=== PATIENT | female | born 1955 | race Caucasian/White ===

== ENCOUNTER 2020-11-07 08:53 | Outpatient (CLI) | payer OTHER, SELFPAY ==
--- NOTE | ~2020-11-07 | XR_ITS ---
EXAMINATION: XR shoulder RT min 2V DATE: 11/07/2020 09:22 INDICATION: Right shoulder pain. TECHNIQUE: 4 views of right shoulder were obtained. COMPARISON: None. FINDINGS: Bone alignment is normal. No fracture. There is mild osteoarthritis of glenohumeral joint a nd acromioclavicular joint. IMPRESSION: 1. Mild polyarticular osteoarthritis. Reviewed, dictated and finalized at location B. STANT CHIEF ENGINEER
== END 2020-11-07 08:54 | disposition home or self-care (01) ==
LOC: ANHIMG 08:58
PROVIDERS: PCP Physician Assistant; Visit Provider Physician Assistant
DX: M25.511 Pain in right shoulder (principal); M19.011 Primary osteoarthritis, right shoulder
CPT/HCPCS: 73030

== ENCOUNTER 2020-11-11 09:30 | Outpatient (CLI) | payer OTHER, SELFPAY ==
--- NOTE | ~2020-11-11 | MR_ITS ---
EXAMINATION: MR shoulder RT wo con DATE: 11/11/2020 10:31 INDICATION: Acute onset right shoulder pain with limited range of motion TECHNIQUE: Magnetic resonance imaging (MRI) of the right shoulder was performed without intravenous c ontrast. Sequences included axial PD-weighted FS FSE, coronal oblique PD-weighted FS FSE, coronal obl ique T2-weighted FS FSE, sagittal PD-weighted FS FSE, and sagittal T1-weighted SE. COMPARISON: Right shoulder radiographs dated 11/07/2020 FINDINGS: Coracoacromial arch: The acromion undersurface is curved in morphology (type II). Small anterior subacromial spur at the a cromial insertion of the otherwise normal coracoacromial ligament. Mild acromioclavicular osteoarthri tis with subarticular edema at the lateral head of the clavicle. Rotator cuff: Moderate tendinopathy of the conjoined portion of the supraspinatus and infraspinatus tendons with li patti shallow bursal sided fraying but without a discrete tear defect. Mild tendinopathy of the more a nterior supraspinatus and infraspinatus tendons. The teres minor and subscapularis tendons are normal . Normal rotator cuff muscle bulk and signal. Biceps tendon, glenoid labrum and glenohumeral cartilage: Long head of the biceps tendon is normal. There is a tear of the 12:00-10:30 position of the posterio r superior glenoid labrum. Small region of partial-thickness cartilage loss without degenerative subc hondral changes at the posterior superior medial aspect of the humeral head. Articular cartilage is o therwise normal. Fluid: Small glenohumeral joint effusion with mild synovitis at the axillary recess and with proportional ex tension of a small amount of fluid into the long head biceps tendon sheath and deep subscapular reces s. No loose osteochondral bodies. Small amount of fluid in the subacromial/subdeltoid bursa as well a s the subcoracoid bursa consistent with mild bursitis. Bones: No fracture or pathologic marrow replacing process. Mild cystic change at the posterior facet of the greater tuberosity. IMPRESSION: 1. Moderate tendinopathy and shallow bursal sided fraying of the conjoined portion of the supraspinat us and infraspinatus tendons. 2. Tear of the posterior superior glenoid labrum. 3. Mild glenohumeral and acromioclavicular osteoarthritis. 4. Mild subacromial/subdeltoid and subcoracoid bursitis. Reviewed, dictated and finalized at location B. H PRINTER HELPER IMPRESSION: 1. Moderate tendinopathy and shallow bursal sided fraying of the conjoined port ion of the supraspinatus and infraspinatus tendons. 2. Tear of the posterior superior glenoid labrum. 3. Mild glenohumeral and acromioclavicular osteoarthritis. 4. Mild subacromial/subdeltoid and subcoracoid bursitis.
== END 2020-11-11 09:31 | disposition home or self-care (01) ==
LOC: ANHIMG 09:33
PROVIDERS: PCP Physician Assistant
DX: M19.011 Primary osteoarthritis, right shoulder (principal); M75.51 Bursitis of right shoulder; S43.431A Superior glenoid labrum lesion of right shoulder, initial encounter; X58.XXXA Exposure to other specified factors, initial encounter
CPT/HCPCS: 73221

== ENCOUNTER 2021-10-01 11:41 | Emergency (ER) | payer OTHER, SELFPAY ==
--- NOTE | ~2021-10-01 | XR_ITS ---
EXAMINATION: XR foot RT min 3V DATE: 10/01/2021 13:05 INDICATION: Right foot pain and inability to bear weight post injury TECHNIQUE: Dorsoplantar, two oblique and lateral views of the right foot were obtained. COMPARISON: None. FINDINGS: Alignment is normal. No fracture. Minimal to mild osteoarthritis of the first metatarsophalangeal, ca lcaneocuboid and a few tarsometatarsal and interphalangeal joints. Soft tissues are unremarkable. IMPRESSION: 1. Minimal to mild osteoarthritis in the right foot. No evident acute osseous abnormality. Reviewed, dictated and finalized at location A. STMENT PROFESSIONAL IMPRESSION: 1. Minimal to mild osteoarthritis in the right foot. No evident acute osseous a bnormality.
[2021-10-01 12:45] VITALS: BP 153/103; PULSE 90; RESP 18; TEMP 36.9; O2SAT 100
[2021-10-01] MEDS: KETOROLAC 30 MG/ML VIAL (*BKC) IM (15:13)
--- NOTE | 2021-10-01 15:47 | ED.GENADULT ---
HPI - General Adult General Chief complaint: Extremity Injury, Lower Stated complaint: R foot injury Time Seen by Provider: 10/01/21 13:52 Source: patient Mode of arrival: wheelchair Limitations: no limitations History of Present Illness HPI narrative: Patient is a 66-year-old female with chief complaint of pain to her right foot and began after a car rolled over her foot while working. Patient reports pain to the entire right foot. She reports she is not able to weight-bear. She denies any other injuries. Patient denies any allergies to any pain medication for renal dysfunction. Related Data Allergies Allergy/AdvReac Type Severity Reaction Status Date / Time Sulfa (Sulfonamide AdvReac Rash Verified 10/01/21 12:48 Antibiotics) Review of Systems Review of Systems: CONSTITUTIONAL: Denies fever, chills, or sweats. EYES: Denies visual changes, redness, or discharge. ENT: Denies rhinorrhea, congestion, sore throat, or otalgia. CARDIOVASCULAR: Denies chest pain, palpitations, or edema. RESPIRATORY: Denies cough or dyspnea. GASTROINTESTINAL: Denies abdominal pain, nausea, vomiting, or diarrhea. GENITOURINARY: Denies dysuria or hematuria. SKIN: Denies rash or itching. MUSCULOSKELETAL: Reports right foot pain denies back pain, joint pain, or myalgia. NEUROLOGIC: Denies headache, numbness, dizziness, or weakness. PSYCHIATRIC: Denies anxiety or depression. Exam Narrative: GENERAL: Well-appearing, well-nourished, and in no acute distress. HEAD: Normocephalic, atraumatic. EYES: PERRLA and EOMI. CHEST: Clear to auscultation. No respiratory distress. No wheezes rales or rhonchi HEART: Regular rate and rhythm. No murmur heard. Normal peripheral pulses. ABDOMEN: Soft, nontender, nondistended, normal active bowel sounds. EXTREMITIES: Swelling to the dorsal aspect of patient's right foot. Patient reports pain with palpation of any of the foot. There are no open wounds. Patient reports decreasing plantar and dorsiflexion due to discomfort. Patient refused to bear weight on the foot. SKIN: Warm, dry, no rash. NEURO: No focal deficits. Alert and oriented x3. PSYCH: Normal mood and affect. Course Vital Signs Vital signs: Vital Signs Temperature 98.5 F 10/01/21 12:45 Pulse Rate 90 10/01/21 12:45 Respiratory Rate 18 10/01/21 12:45 Blood Pressure 153/103 H 10/01/21 12:45 Pulse Oximetry 100 10/01/21 12:45 Temperature 98.5 F 10/01/21 12:45 Pulse Rate 90 10/01/21 12:45 Respiratory Rate 18 10/01/21 12:45 Blood Pressure 153/103 H 10/01/21 12:45 Pulse Oximetry 100 10/01/21 12:45 Medical Decision Making MDM Narrative Medical decision making narrative: There are no fractures noted on patient's x-ray. Discussed with patient that she may have injured something in the ligaments. Discussed patient MRIs evaluating the ligament injury. We do not perform those in emergency department. Patient be placed in postop shoe, given crutches, naproxen and cyclobenzaprine for discomfort. Patient instructed to rest, ice, elevate and follow-up with teacher specialist further evaluation of her symptoms. Patient given a work note. Patient agreed to return to emergency department if she has any emergent symptoms. Differential Diagnosis Differential Diagnosis: Fracture, sprain, strain, contusion Vital Signs Vital Signs: Vital Signs Temperature 98.5 F 10/01/21 12:45 Pulse Rate 90 10/01/21 12:45 Respiratory Rate 18 10/01/21 12:45 Blood Pressure 153/103 H 10/01/21 12:45 Pulse Oximetry 100 10/01/21 12:45 Temperature 98.5 F 10/01/21 12:45 Pulse Rate 90 10/01/21 12:45 Respiratory Rate 18 10/01/21 12:45 Blood Pressure 153/103 H 10/01/21 12:45 Pulse Oximetry 100 10/01/21 12:45 Imaging Data Radiologist's impression: ITS Impressions Foot X-Ray 10/01/21 13:11 IMPRESSION: 1. Minimal to mild osteoarthritis in the right foot. No evident acute osseous abnormality. Disc
[2021-10-01 16:33] VITALS: BP 161/91; PULSE 92; RESP 19; O2SAT 96
== END 2021-10-01 16:34 | disposition home or self-care (01) ==
PROVIDERS: Emergency Provider Emergency Medicine
DX: S93.601A Unspecified sprain of right foot, initial encounter (principal); M19.071 Primary osteoarthritis, right ankle and foot; W22.8XXA Striking against or struck by other objects, initial encounter
CPT/HCPCS: 73630; 96372; 99283; J1885

== ENCOUNTER 2021-12-24 14:40 | Outpatient (CLI) | payer OTHER, SELFPAY ==
--- NOTE | ~2021-12-24 | MM_ITS ---
EXAMINATION: MM screening [place] BI w adrian HISTORY: Screening TECHNIQUE: Craniocaudal and mediolateral oblique 3-D tomosynthesis images were obtained and synthetic 2-D images were generated. CAD analysis was submitted and interpreted. COMPARISON: No prior mammogram is available for comparison at this institution. BREAST PARENCHYMAL COMPOSITION: The breasts are heterogeneously dense, which may obscure small masses . FINDINGS: There is no evidence of suspicious mass, calcification, or architectural distortion to sugg est malignancy in either breast. There has been no suspicious interval change. IMPRESSION: 1. No mammographic evidence of malignancy. 2. Recommend routine screening mammography in one year. BI-RADS Category 1: Negative Reviewed, dictated and finalized at location A. SIT BUS OPERATOR
== END 2021-12-24 14:41 | disposition home or self-care (01) ==
PROVIDERS: PCP Family Medicine Sports Medicine; Visit Provider Family Medicine Sports Medicine
DX: Z12.31 Encounter for screening mammogram for malignant neoplasm of breast (principal)
CPT/HCPCS: 77063; 77067

== ENCOUNTER 2023-05-28 07:08 | Outpatient (CLI) | payer MEDICARE, SELFPAY ==
[2023-05-28 07:48] LABS: Basophils Percent Auto 0.7 % (0.2-1.2); Eosinophils Absolute Auto 0.1 K/mm3 (0-0.3); Eosinophils Percent Auto 2.4 % (0-4.4); Hemoglobin 12.9 g/dL (12.0-15.0); Immature Granulocyte Absolute 0.02 K/mm3 (0.00-0.031); Immature Granulocyte Percent A 0.3 % (0-0.5); Lymphocytes Absolute Auto 1.69 K/mm3 (0.9-3.2); Lymphocytes Percent Auto 29.1 % (18.3-44.2); Mean Corpuscular HGB Conc 31.5 g/dl (32-36); Mean Corpuscular Hemoglobin 31.2 pg (26-34); Mean Platelet Volume 10.2 fl (7.4-10.4); Monocytes Absolute Auto 0.7 K/mm3 (0.1-0.6); Monocytes Percent Auto 11.4 % (2.6-8.5); Neutrophils Absolute Auto 3.3 K/mm3 (1.3-6.7); Neutrophils Percent Auto 56.1 % (45.5-73.1); Platelet Count Result 196 k/mm3 (150-375); Red Blood Count 4.14 M/mm3 (4.2-5.4); Red Cell Distribution Width 14.5 % (11.5-14.5); White Blood Count 5.8 K/mm3 (4.5-10.0)
[2023-05-28 07:54] LABS: Appearance Urine Clear (Clear); Bacteria Urine None Seen /hpf; Bilirubin Urine Negative (Negative); Blood Urine Negative (Negative); Color Urine Yellow (Yellow); Glucose Urine UA Negative (Negative); Ketones Urine Negative (Negative); Leukocyte Esterase Ur 3+ LEU/UL (Negative); Nitrate Urine Negative (Negative); Non Pathogenic Casts 0-2; Protein Urine Negative (Negative); RBC Urine 0-2 /hpf (0-2); Specific Grav Ur 1.012 (1.001-1.035); Squamous Epithelial Cell Urine Moderate /hpf (Few); Urobilinogen Urine 0.2 mg/dL (<2.0)
[2023-05-28 07:56] LABS: Add Urine Microscopic? YES
[2023-05-28 07:58] LABS: Alanine Aminotransferase 25 U/L (6-35); Albumin Level 4.5 g/dL (3.5-5.1); Alkaline Phosphatase 67 U/L (38-126); Anion Gap 6 mmol/L (8-16); Aspartate Amino Transferase 31 U/L (14-36); Bilirubin,Total 0.4 mg/dL (0.2-1.3); Blood Urea Nitrogen 12 mg/dL (7-17); Calcium 8.5 mg/dL (8.4-10.2); Carbon Dioxide 28 mmol/L (22-30); Chloride 103 mmol/L (98-107); Cholesterol 227 mg/dL (0-200); Estimated Glomerular Filt Rate > 60; Glucose 87 mg/dL (65-110); HDL Direct 91 mg/dL; Potassium 4.3 mmol/L (3.4-5.0); Sodium 137 mmol/L (137-145); Triglycerides 56 mg/dL (<150)
[2023-05-28 08:09] LABS: LDL Cholesterol Direct 109 mg/dL
[2023-05-28 08:40] LABS: Free T4 Free Thyroxine 1.11 ng/mL (0.78-2.19)
[2023-05-28 09:12] LABS: Folic Acid > 20.0 ng/mL (2.76->20)
== END 2023-05-28 07:09 | disposition home or self-care (01) ==
PROVIDERS: PCP Family Medicine Sports Medicine; Visit Provider Family Medicine Sports Medicine
DX: E78.5 Hyperlipidemia, unspecified (principal); J44.9 Chronic obstructive pulmonary disease, unspecified; J45.909 Unspecified asthma, uncomplicated; K21.9 Gastro-esophageal reflux disease without esophagitis
CPT/HCPCS: 36415; 80053; 80061; 81001; 82607; 82746; 84439; 84443; 85025; 87086

== ENCOUNTER 2023-10-09 09:34 | Outpatient (CLI) | payer MEDICARE, SELFPAY ==
--- NOTE | ~2023-10-09 | MM_ITS ---
EXAMINATION: MM screening [place] BI w adrian HISTORY: Screening mammogram TECHNIQUE: Craniocaudal and mediolateral oblique 3-D tomosynthesis images were obtained and synthetic 2-D images were generated. CAD analysis was submitted and interpreted. COMPARISON: 12/24/2021, 11/13/2017 bilateral screening mammogram examinations BREAST PARENCHYMAL COMPOSITION: The breasts are heterogeneously dense, which may obscure small masses . FINDINGS: There is no evidence of suspicious mass, calcification, or architectural distortion to sugg est malignancy in either breast. There has been no suspicious interval change. IMPRESSION: 1. No mammographic evidence of malignancy. 2. Recommend routine screening mammography in one year. BI-RADS Category 1: Negative Reviewed, dictated and finalized at location A. E MERCHANT
== END 2023-10-09 09:35 | disposition home or self-care (01) ==
PROVIDERS: PCP Family Medicine Sports Medicine; Visit Provider Nurse Practitioner
DX: Z12.31 Encounter for screening mammogram for malignant neoplasm of breast (principal)
CPT/HCPCS: 77063; 77067

== ENCOUNTER 2023-11-25 07:44 | Outpatient (CLI) | payer MEDICARE, SELFPAY ==
[2023-11-25 08:26] LABS: Alanine Aminotransferase 19 U/L (6-35); Albumin Level 4.4 g/dL (3.5-5.1); Alkaline Phosphatase 77 U/L (38-126); Anion Gap 6 mmol/L (8-16); Aspartate Amino Transferase 29 U/L (14-36); Bilirubin,Total 0.5 mg/dL (0.2-1.3); Blood Urea Nitrogen 14 mg/dL (7-17); Calcium 9.5 mg/dL (8.4-10.2); Carbon Dioxide 28 mmol/L (22-30); Chloride 103 mmol/L (98-107); Cholesterol 227 mg/dL (0-200); Estimated Glomerular Filt Rate > 60; Glucose 98 mg/dL (65-110); HDL Direct 82 mg/dL; Potassium 4.9 mmol/L (3.4-5.0); Sodium 137 mmol/L (137-145); Triglycerides 78 mg/dL (<150)
[2023-11-25 08:28] LABS: Basophils Absolute Auto 0.1 K/mm3 (0.0-0.1); Basophils Percent Auto 0.9 % (0.2-1.2); Eosinophils Absolute Auto 0.2 K/mm3 (0-0.3); Eosinophils Percent Auto 2.3 % (0-4.4); Hematocrit 43.9 % (37.0-47.0); Hemoglobin 13.8 g/dL (12.0-15.0); Immature Granulocyte Absolute 0.01 K/mm3 (0.00-0.031); Immature Granulocyte Percent A 0.2 % (0-0.5); Lymphocytes Absolute Auto 1.79 K/mm3 (0.9-3.2); Lymphocytes Percent Auto 27.3 % (18.3-44.2); Mean Corpuscular HGB Conc 31.4 g/dl (32-36); Mean Corpuscular Volume 98.7 fl (80-100); Mean Platelet Volume 10.4 fl (7.4-10.4); Monocytes Absolute Auto 0.8 K/mm3 (0.1-0.6); Monocytes Percent Auto 11.5 % (2.6-8.5); Neutrophils Absolute Auto 3.8 K/mm3 (1.3-6.7); Neutrophils Percent Auto 57.8 % (45.5-73.1); Platelet Count Result 241 k/mm3 (150-375); Red Blood Count 4.45 M/mm3 (4.2-5.4); Red Cell Distribution Width 13.6 % (11.5-14.5); White Blood Count 6.6 K/mm3 (4.5-10.0)
[2023-11-25 08:29] LABS: Appearance Urine Cloudy (Clear); Bacteria Urine 3+ /hpf; Bilirubin Urine Negative (Negative); Blood Urine Negative (Negative); Color Urine Yellow (Yellow); Glucose Urine UA Negative (Negative); Ketones Urine Negative (Negative); Leukocyte Esterase Ur 3+ LEU/UL (NEGATIVE); Nitrate Urine Negative (Negative); Non Pathogenic Casts 0-2; Protein Urine 1+ mg/dL (Negative); RBC Urine 0-2 /hpf (0-2); Specific Grav Ur 1.018 (1.001-1.035); Squamous Epithelial Cell Urine Many /hpf (Few); Urobilinogen Urine 0.2 mg/dL (<2.0); WBC Urine 21-50 /hpf (0-3); pH Urine 5.5 (5.0-9.0)
[2023-11-25 08:33] LABS: Add Urine Microscopic? YES
[2023-11-25 08:37] LABS: LDL Cholesterol Direct 114 mg/dL
[2023-11-25 08:55] LABS: Thyroid Stimulating Hormone 0.162 uIU/mL (0.465-4.680)
[2023-11-25 09:34] LABS: Folic Acid > 20.0 ng/mL (2.76->20); Vitamin B12 > 1000.0 pg/mL (239-931)
== END 2023-11-25 07:45 | disposition home or self-care (01) ==
LOC: ANHLAB 07:46
PROVIDERS: PCP Family Medicine; Visit Provider Nurse Practitioner
DX: E78.5 Hyperlipidemia, unspecified (principal); K21.9 Gastro-esophageal reflux disease without esophagitis; J44.9 Chronic obstructive pulmonary disease, unspecified
CPT/HCPCS: 36415; 80053; 80061; 81001; 82607; 82746; 84439; 84443; 85025

== ENCOUNTER 2024-06-08 09:08 | Outpatient (CLI) | payer MEDICARE, SELFPAY ==
[2024-06-08 09:58] LABS: Add Urine Microscopic? YES; Appearance Urine Cloudy (Clear); Bacteria Urine 2+ /hpf; Bilirubin Urine Negative (Negative); Blood Urine Negative (Negative); Color Urine Yellow (Yellow); Glucose Urine UA Negative (Negative); Ketones Urine Negative (Negative); Leukocyte Esterase Ur 3+ LEU/UL (Negative); Nitrate Urine Negative (Negative); Non Pathogenic Casts 0-2; Protein Urine Trace mg/dL (Negative); RBC Urine 0-2 /hpf (0-2); Specific Grav Ur 1.017 (1.001-1.035); Squamous Epithelial Cell Urine Many /hpf (Few); WBC Urine 51-100 /hpf (0-3); pH Urine 6.5 (5.0-9.0)
[2024-06-08 10:01] LABS: Alanine Aminotransferase 17 U/L (6-35); Albumin Level 4.5 g/dL (3.5-5.1); Alkaline Phosphatase 64 U/L (38-126); Anion Gap 6 mmol/L (4-12); Aspartate Amino Transferase 27 U/L (14-36); Bilirubin,Total 0.5 mg/dL (0.2-1.3); Blood Urea Nitrogen 15 mg/dL (7-17); Carbon Dioxide 30 mmol/L (22-30); Chloride 101 mmol/L (98-107); Cholesterol 207 mg/dL (0-200); Estimated Glomerular Filt Rate > 60; Glucose 94 mg/dL (65-110); HDL Direct 73 mg/dL; Potassium 4.3 mmol/L (3.4-5.0); Sodium 137 mmol/L (137-145); Triglycerides 92 mg/dL (<150)
[2024-06-08 10:06] LABS: Basophils Absolute Auto 0.1 K/mm3 (0.0-0.1); Basophils Percent Auto 1.1 % (0.2-1.2); Eosinophils Absolute Auto 0.2 K/mm3 (0-0.3); Eosinophils Percent Auto 3.7 % (0-4.4); Hematocrit 41.7 % (37.0-47.0); Hemoglobin 13.5 g/dL (12.0-15.0); Immature Granulocyte Absolute 0.01 K/mm3 (0.00-0.031); Immature Granulocyte Percent A 0.2 % (0-0.5); Lymphocytes Absolute Auto 2.11 K/mm3 (0.9-3.2); Lymphocytes Percent Auto 39.4 % (18.3-44.2); Mean Corpuscular HGB Conc 32.4 g/dl (32-36); Mean Corpuscular Hemoglobin 32.1 pg (26-34); Mean Platelet Volume 10.3 fl (7.4-10.4); Monocytes Absolute Auto 0.7 K/mm3 (0.1-0.6); Monocytes Percent Auto 13.1 % (2.6-8.5); Neutrophils Absolute Auto 2.3 K/mm3 (1.3-6.7); Neutrophils Percent Auto 42.5 % (45.5-73.1); Platelet Count Result 191 k/mm3 (150-375); Red Blood Count 4.21 M/mm3 (4.2-5.4); Red Cell Distribution Width 14.1 % (11.5-14.5); White Blood Count 5.4 K/mm3 (4.5-10.0)
[2024-06-08 10:12] LABS: LDL Cholesterol Direct 107 mg/dL
[2024-06-08 10:29] LABS: Vitamin D 25 Hydroxy 38.8 ng/mL
[2024-06-08 11:10] LABS: Folic Acid > 20.0 ng/mL (2.76->20)
== END 2024-06-08 09:09 | disposition home or self-care (01) ==
PROVIDERS: PCP Family Medicine; Visit Provider Nurse Practitioner
DX: E78.5 Hyperlipidemia, unspecified (principal); J44.9 Chronic obstructive pulmonary disease, unspecified; J45.909 Unspecified asthma, uncomplicated; E53.8 Deficiency of other specified B group vitamins; K21.9 Gastro-esophageal reflux disease without esophagitis; Z13.21 Encounter for screening for nutritional disorder; E55.9 Vitamin D deficiency, unspecified
CPT/HCPCS: 36415; 80053; 80061; 81001; 82306; 82607; 82746; 84443; 85025; 87086; 87088

== ENCOUNTER 2025-01-31 09:39 | Outpatient (CLI) | payer MEDICARE, SELFPAY ==
--- OUTSIDE RECORDS SUMMARY | 2025-01-31 10:32 | XMS_ITS | Clinical Summary ---
Author Organization [facility] [place] [address] [facility] Address [address] [place] [address] Care Team Providers Care Financial Planning Advisor Name Role Phone Yoanna Narvaez Primary Care Provider +1- [phone] Allergies Active Allergy Reactions Criticality Noted Date Comments Sulfa (Sulfonamide Antibiotics) Hives Medium 10/20 Medications Breo Ellipta 100-25 mcg/dose diskus inhaler INHALE 1 PUFF BY MOUTH ONCE DAILY RINSE AND SPIT AFTER EACH USE TO PREVENT THRUSH 0 Active simvastatin (ZOCOR) 20 mg tabletIndications:H yperlipidemia, unspecified hyperlipidemia type Take 1 tablet (20 mg total) by mouth daily 90 tablet [address] (PROTONIX) 20 mg EC tabletIndications:G astroesophageal reflux disease, unspecified whether esophagitis present Take 1 tablet (20 mg total) by mouth daily 90 tablet 1 Active Active Problems Problem Noted Date Diagnosed Date Hyperlipidemia 11/06/2020 Assessment & Plan (11/06/2020 9:29 AM BACKUP OPERATOR): Notes recent labs, will continue medication same. Will retrieve records from previous pcp. Gastroesophageal reflux disease 11/06/2020 Assessment & Plan (11/06/2020 9:30 AM BACKUP OPERATOR): Will continue with protonix. She was advised to call gi today - she reports she doesn't need a referral but will let us know if we can be of assistance. She was advised to discontinue breads/starchy foods, red meats, and pork as these are her offending agents. She was encouraged to try protein shakes or blending her foods until able to see gi. Encounter to establish care 11/06/2020 Acute pain of right shoulder 11/06/2020 Dysphagia 11/06/2020 Assessment & Plan (11/06/2020 9:30 AM BACKUP OPERATOR): Will continue with protonix. She was advised to call gi today - she reports she doesn't need a referral but will let us know if we can be of assistance. She was advised to discontinue breads/starchy foods, red meats, and pork as these are her offending agents. She was encouraged to try protein shakes or blending her foods until able to see gi. Immunizations Immunization Administration Dates Next Due Influenza, Unspecified 07/20/2020,07/20/2019 Surgical History Surgery Date Site/Laterality Comments HYSTERECTOMY CARPAL TUNNEL RELEASE SINUS SURGERY INGUINAL HERNIA REPAIR Left Medical History Medical History Date Comments GERD (gastroesophageal reflux disease) Arthritis Family History Medical History Relation Name Comments Diabetes Brother Heart disease Father Cancer Mother Heart disease Mother Relation Name Status Comments Brother Father Alive Mother Social History Tobacco Use Types Packs/Day Years Used Date Smoking Tobacco: Never Smokeless Tobacco: Never Alcohol Use Standard Drinks/Week Comments Yes 0 (1 standard drink = 0.6 oz pur e alcohol) PHQ-2 Answer Date Recorded PHQ-2 Total Score (If total score is 3 or more points, staff should administer the PHQ-9) 0 11/06/2020 Personal Safety Answer Date Recorded Getting School Help Needed Not on file 01/01 Comments Unknown Sex and Gender Information Value Date Recorded Sex Assigned at Not on file Legal Sex Female 2:37 AM BACKUP OPERATOR Gender Identity Not on file Sexual Orientation Not on file Obstetrics History Last Filed Vital Signs Vital Sign Reading Time Taken Comments Blood Pressure 120/70 11/06/2020 8:41 AM BACKUP OPERATOR Pulse 75 11/06/2020 8:41 AM BACKUP OPERATOR Temperature 36.6 C (97.8 F) 11/06/2020 8:41 AM BACKUP OPERATOR Respiratory Rate - - Oxygen Saturation 97% 11/06/2020 8:41 AM BACKUP OPERATOR Inhaled Oxygen Concentration - - Weight 58 kg (127 lb 12.8 oz) 11/06/2020 8:41 AM BACKUP OPERATOR Height 167.6 cm (5' 6 ) 11/06/2020 8:41 AM BACKUP OPERATOR Body Mass Index 20.63 11/06/2020 8:41 AM BACKUP OPERATOR Plan of Treatment Not on file Insurance [facility] CORE Care Teams Financial Planning Advisor Relationship Specialty Start Date End Date Yoanna Narvaez PA PCP - General Alley Worker 10/23/20
--- OUTSIDE RECORDS SUMMARY | 2025-01-31 10:32 | XMS_ITS | Clinical Summary ---
Author Organization [facility] Address [address] [place] [id number] Care Team Providers Care Automotive Parts Counter Assistant Name Role Phone Unavailable Primary Care Provider Unavailabl e Social History Tobacco Use Types Packs/Day Years Used Date Smoking Tobacco: Never Assessed Comments Unknown Sex and Gender Information Value Date Recorded Sex Assigned at Not on file Legal Sex Female 5:58 PM CDT Gender Identity Not on file Sexual Orientation Not on file Plan of Treatment Health Maintenance Due Date Last Done Comments Colorectal Cancer Screening Colonoscopy (10 Years) 1957 Hepatitis C 1975 DTaP, Tdap and Td Vaccines ( 1 - Tdap) 01/15/1976 Mammogram Screening 1997 Zoster Vaccines (1 of 2) 2007 Dexa Scan (General) 2022 Pneumococcal Vaccine: 50+ Ye ars (1 of 1 - PCV) 2022 COVID-19 Vaccine ( - 2023-2 5 season) 2024 RSV Immunization or 60+ Years (1 - 1-dose 75+ series) 01/15/2032 Meningococcal B Vaccine Aged Out No l onger eligible based on patient's age to complete this topic Meningococcal Vaccine Aged Out No laly clifton eligible based on patient's age to complete this topic RSV Immunizations Under 20 Months Aged Out No longer eligible based on patient's age to complete this topic
--- OUTSIDE RECORDS SUMMARY | 2025-01-31 10:32 | XMS_ITS | Referral Summary ---
Author Organization [facility] [place] [address] [facility] Address [address] [place] [address] Care Team Providers Care Pear Picker Name Role Phone Yoanna Narvaez Primary Care Provider +1- [phone] Allergies Active Allergy Reactions Criticality Noted Date [...] 11/06/2020 Assessment & Plan (11/06/2020 9:29 AM KNOWLEDGE ARCHITECT): Notes recent labs, will continue medication same. Will retrieve records from previous pcp. Gastroesophageal reflux disease 11/06/2020 Assessment & Plan (11/06/2020 9:30 AM KNOWLEDGE ARCHITECT): Will continue with protonix. She was advised [...] 11/06/2020 Assessment & Plan (11/06/2020 9:30 AM KNOWLEDGE ARCHITECT): Will continue with protonix. She was advised [...] Administration Dates Next Due Influenza, Unspecified 07/20/2020,07/20/2019 Social History Tobacco Use Types Packs/Day Years [...] on file Legal Sex Female 2:37 AM KNOWLEDGE ARCHITECT Gender Identity Not on file Sexual Orientation Not on file Last Filed Vital Signs Vital Sign Reading Time Taken Comments Blood Pressure 120/70 11/06/2020 8:41 AM KNOWLEDGE ARCHITECT Pulse 75 11/06/2020 8:41 AM KNOWLEDGE ARCHITECT Temperature 36.6 C (97.8 F) 11/06/2020 8:41 AM KNOWLEDGE ARCHITECT Respiratory Rate - - Oxygen Saturation 97% 11/06/2020 8:41 AM KNOWLEDGE ARCHITECT Inhaled Oxygen Concentration - - Weight 58 kg (127 lb 12.8 oz) 11/06/2020 8:41 AM KNOWLEDGE ARCHITECT Height 167.6 cm (5' 6 ) 11/06/2020 8:41 AM KNOWLEDGE ARCHITECT Body Mass Index 20.63 11/06/2020 8:41 AM KNOWLEDGE ARCHITECT Plan of Treatment Not on file Insurance [facility] CORE Care Teams Pear Picker Relationship Specialty Start Date End Date Yoanna Narvaez PA PCP - General Stumper Feller 10/23/20
--- OUTSIDE RECORDS SUMMARY | 2025-01-31 10:32 | XMS_ITS | Clinical Summary ---
Author Organization [facility] Address [address] [address] Phone Care Team Providers Care Stationary Engineer Supervisor Name Role Phone Yoanna Avitia Primary Care Provider [phone] [phone] Allergies Active Allergy Reactions Criticality Noted Date Comments Sulfa Antibiotics Hives Medium 11/06/2020 Medications pantoprazole (PROTONIX) 20 MG Tablet Delayed Response Take 20 mg by mouth. 11/06/2020 Active simvastatin (ZOCOR) 20 MG Tablet Take 20 mg by mouth. 10/22/2020 Active fluticasone-rob anterol (Breo Ellipta) 100-25 MCG/INH AEROSOL POWDER, BREATH ACTIVATED INHALE 1 PUFF BY MOUTH ONCE DAILY RINSE AND SPIT AFTER EACH USE TO PREVENT THRUSH 10/17/2020 Active Active Problems No known active problems Family History Medical History Relation Name Comments Diabetes Brother Hepatitis Brother Chronic Obstructive Pulmonary Disease Father Cancer Mother Heart Attack Mother Relation Name Status Comments Brother Father Mother Social History Tobacco Use Types Packs/Day Years Used Date Smoking Tobacco: Former Smokeless Tobacco: Never Tobacco Cessation:Counseling Given: No Alcohol Use Standard Drinks/Week Comments Yes 0 (1 standard drink = 0.6 oz pur e alcohol) 3x weekly; Beer Sexually Active Control Partners Comments Yes Comments No Sex and Gender Information Value Date Recorded Sex Assigned at Not on file Legal Sex Female 9:10 PM CDT Gender Identity Not on file Sexual Orientation Not on file Last Filed Vital Signs Vital Sign Reading Time Taken Comments Blood Pressure 122/78 12/25/2020 8:46 AM VEHICLE SALES PROFESSIONAL Pulse 78 12/25/2020 8:46 AM VEHICLE SALES PROFESSIONAL Temperature 36.1 C (97 F) 12/25/2020 8:46 AM VEHICLE SALES PROFESSIONAL Respiratory Rate 20 12/25/2020 8:46 AM VEHICLE SALES PROFESSIONAL Oxygen Saturation 97% 12/25/2020 8:46 AM VEHICLE SALES PROFESSIONAL Inhaled Oxygen Concentration - - Weight 58.1 kg (128 lb) 12/25/2020 8:46 AM VEHICLE SALES PROFESSIONAL Height 167.6 cm (5' 6 ) 12/25/2020 8:46 AM VEHICLE SALES PROFESSIONAL Body Mass Index 20.66 12/25/2020 8:46 AM VEHICLE SALES PROFESSIONAL Plan of Treatment Health Maintenance Due Date Last Done Comments Hepatitis C Virus (HCV) Screening 1955 TdaP Immunization 1955 Colonoscopy 2002 Colorectal Cancer Screening 2002 Cologuard 2007 Immunochemical Fecal Occult Blood 2007 Pneumococcal Immunization (5 0+ years) (1 of 1 - PCV) 2007 Zoster Immunization (1 of 2) 2007 Influenza Immunization (#1) 2024 SARS-COV-2 Immunization (2023- season) 2024 08/03/2021, 10/31/2020, 10/10/2020 Respiratory Syncytial Virus (RSV) Immunization (Adult) (1 - 1-dose 75+ series) 01/15/2032 Hepatitis B Immunization Aged Out No longer eligible based on patient's age to complete this topic Meningococcal Immunization (ACWY) Aged Out No longer eligible b ased on patient's age to complete this topic Rotavirus Immunization Aged Out No lo nger eligible based on patient's age to complete this topic Insurance Care Teams Stationary Engineer Supervisor Relationship Specialty Start Date End Date Yoanna Avitia PA [address] [place], [place] [address] PCP - General Physician Websphere Portal Architect 12/25/20
[2025-01-31 11:01] LABS: Hematocrit 42.6 % (37.0-47.0); Hemoglobin 13.5 g/dL (12.0-15.0); Mean Corpuscular HGB Conc 31.7 g/dl (32-36); Mean Corpuscular Volume 97.7 fl (80-100); Mean Platelet Volume 10.4 fl (7.4-10.4); Platelet Count Result 211 k/mm3 (150-375); Red Blood Count 4.36 M/mm3 (4.2-5.4); Red Cell Distribution Width 14.1 % (11.5-14.5); White Blood Count 5.8 K/mm3 (4.5-10.0)
[2025-01-31 11:11] LABS: Alanine Aminotransferase 22 U/L (6-35); Albumin Level 4.7 g/dL (3.5-5.1); Alkaline Phosphatase 76 U/L (38-126); Anion Gap 9 mmol/L (4-12); Aspartate Amino Transferase 31 U/L (14-36); Bilirubin,Total 0.4 mg/dL (0.2-1.3); Blood Urea Nitrogen 13 mg/dL (7-17); Calcium 9.4 mg/dL (8.4-10.2); Carbon Dioxide 29 mmol/L (22-30); Chloride 100 mmol/L (98-107); Cholesterol 239 mg/dL (0-200); Estimated Glomerular Filt Rate > 60; Glucose 97 mg/dL (65-110); HDL Direct 98 mg/dL; Potassium 4.2 mmol/L (3.4-5.0); Sodium 138 mmol/L (137-145); Triglycerides 152 mg/dL (<150)
[2025-01-31 11:17] LABS: Add Urine Microscopic? YES; Appearance Urine Clear (Clear); Bacteria Urine Rare /hpf; Bilirubin Urine Negative (Negative); Blood Urine Negative (Negative); Color Urine Yellow (Yellow); Glucose Urine UA Negative (Negative); Ketones Urine Negative (Negative); Leukocyte Esterase Ur 2+ LEU/UL (Negative); Need Manual Microscopic Reviewed; Nitrate Urine Negative (Negative); Non Pathogenic Casts 0-2; Protein Urine Negative (Negative); RBC Urine 0-2 /hpf (0-2); Specific Grav Ur 1.012 (1.001-1.035); Squamous Epithelial Cell Urine Few /hpf (Few); Urobilinogen Urine 0.2 mg/dL (<2.0); WBC Urine 0-5 /hpf (0-3); pH Urine 7.5 (5.0-9.0)
[2025-01-31 11:23] LABS: LDL Cholesterol Direct 103 mg/dL
== END 2025-01-31 09:40 | disposition home or self-care (01) ==
PROVIDERS: PCP Family Medicine; Visit Provider Nurse Practitioner
DX: E78.5 Hyperlipidemia, unspecified (principal); J44.9 Chronic obstructive pulmonary disease, unspecified; K21.9 Gastro-esophageal reflux disease without esophagitis; E53.8 Deficiency of other specified B group vitamins; R53.81 Other malaise; R79.89 Other specified abnormal findings of blood chemistry; R35.1 Nocturia
CPT/HCPCS: 36415; 80053; 80061; 81001; 84443; 85027; 87086

== ENCOUNTER 2025-03-31 02:56 | Day surgery (SDC) | payer MEDICARE, SELFPAY ==
[2025-03-21 13:28] VITALS: BMI 19.5
--- OUTSIDE RECORDS SUMMARY | 2025-03-31 03:05 | XMS_ITS | Clinical Summary ---
Author Organization [facility] Address [address] [address] Phone Care Team Providers Care Plastic Battery Assembler Name Role Phone Yoanna Avitia Primary Care Provider +1 [phone] Allergies Active Allergy Reactions Criticality Noted Date [...] Comments Blood Pressure 122/78 12/25/2020 8:46 AM TRIMMER MACHINE Pulse 78 12/25/2020 8:46 AM TRIMMER MACHINE Temperature 36.1 C (97 F) 12/25/2020 8:46 AM TRIMMER MACHINE Respiratory Rate 20 12/25/2020 8:46 AM TRIMMER MACHINE Oxygen Saturation 97% 12/25/2020 8:46 AM TRIMMER MACHINE Inhaled Oxygen Concentration - - Weight 58.1 kg (128 lb) 12/25/2020 8:46 AM TRIMMER MACHINE Height 167.6 cm (5' 6) 12/25/2020 8:46 AM TRIMMER MACHINE Body Mass Index 20.66 12/25/2020 8:46 AM TRIMMER MACHINE Plan of Treatment Health Maintenance Due Date Last Done Comments Hepatitis C Virus (HCV) Screening 1955 TdaP Immunization 1957 Cologuard 2002 Colonoscopy 2002 Colorectal Cancer Screening 2002 Immunochemical Fecal Occult Blood 2002 Pneumococcal Immunization (5 0+ years) (1 of 1 - PCV) 2007 Zoster Immunization (1 of 2) 2007 SARS-COV-2 Immunization (4 - season) 2024 08/03/2021, 10/31/2020, 10/10/2020 Influenza Immunization (Seas on Ended) 2025 Respiratory Syncytial Virus (RSV) Immunization (Adult) (1 - 1-dose 75+ series) 01/15/2032 Hepatitis B Immunization Aged Out No longer eligible based on patient's age to complete this topic Human Papillomavirus (HPV) Immunization Aged Out No longer eligible b ased on patient's age to complete this topic Meningococcal Immunization (ACWY) Aged Out No longer eligible b ased on patient's age to complete this topic Rotavirus Immunization Aged Out No lo nger eligible based on patient's age to complete this topic Insurance [facility] Care Teams Plastic Battery Assembler Relationship Specialty Start Date End Date Yoanna Avitia PA [address] [place], [place] [address] PCP - General Physician Cable Television Technician 12/25/20
--- OUTSIDE RECORDS SUMMARY | 2025-03-31 03:05 | XMS_ITS | Clinical Summary ---
Author Organization [facility] [place] [address] [facility] Address [address] [place] [address] Care Team Providers Care Planning Feeder Name Role Phone Yoanna Narvaez Primary Care Provider +1- [phone] Allergies Active Allergy Reactions Criticality Noted Date [...] 11/06/2020 Assessment & Plan (11/06/2020 9:29 AM MANAGER INVESTIGATIONS): Notes recent labs, will continue medication same. Will retrieve records from previous pcp. Gastroesophageal reflux disease 11/06/2020 Assessment & Plan (11/06/2020 9:30 AM MANAGER INVESTIGATIONS): Will continue with protonix. She was advised [...] 11/06/2020 Assessment & Plan (11/06/2020 9:30 AM MANAGER INVESTIGATIONS): Will continue with protonix. She was advised [...] on file Legal Sex Female 2:37 AM MANAGER INVESTIGATIONS Gender Identity Not on file Sexual Orientation Not on file Obstetrics History Last Filed Vital Signs Vital Sign Reading Time Taken Comments Blood Pressure 120/70 11/06/2020 8:41 AM MANAGER INVESTIGATIONS Pulse 75 11/06/2020 8:41 AM MANAGER INVESTIGATIONS Temperature 36.6 C (97.8 F) 11/06/2020 8:41 AM MANAGER INVESTIGATIONS Respiratory Rate - - Oxygen Saturation 97% 11/06/2020 8:41 AM MANAGER INVESTIGATIONS Inhaled Oxygen Concentration - - Weight 58 kg (127 lb 12.8 oz) 11/06/2020 8:41 AM MANAGER INVESTIGATIONS Height 167.6 cm (5' 6) 11/06/2020 8:41 AM MANAGER INVESTIGATIONS Body Mass Index 20.63 11/06/2020 8:41 AM MANAGER INVESTIGATIONS Plan of Treatment Not on file Insurance [facility] CORE Care Teams Planning Feeder Relationship Specialty Start Date End Date Yoanna Narvaez PA PCP - General Welt Beater 10/23/20
--- OUTSIDE RECORDS SUMMARY | 2025-03-31 03:05 | XMS_ITS | Referral Summary ---
Author Organization [facility] [place] [facility] Address [address] [place] [address] Care Team Providers Care Time Analysis Clerk Name Role Phone Yoanna Narvaez Primary Care Provider [phone]- [phone] Allergies Active Allergy Reactions Criticality Noted Date [...] 11/06/2020 Assessment & Plan (11/06/2020 9:29 AM FUNCTIONAL ANALYST): Notes recent labs, will continue medication same. Will retrieve records from previous pcp. Gastroesophageal reflux disease 11/06/2020 Assessment & Plan (11/06/2020 9:30 AM FUNCTIONAL ANALYST): Will continue with protonix. She was advised [...] 11/06/2020 Assessment & Plan (11/06/2020 9:30 AM FUNCTIONAL ANALYST): Will continue with protonix. She was advised [...] on file Legal Sex Female 2:37 AM FUNCTIONAL ANALYST Gender Identity Not on file Sexual Orientation Not on file Last Filed Vital Signs Vital Sign Reading Time Taken Comments Blood Pressure 120/70 11/06/2020 8:41 AM FUNCTIONAL ANALYST Pulse 75 11/06/2020 8:41 AM FUNCTIONAL ANALYST Temperature 36.6 C (97.8 F) 11/06/2020 8:41 AM FUNCTIONAL ANALYST Respiratory Rate - - Oxygen Saturation 97% 11/06/2020 8:41 AM FUNCTIONAL ANALYST Inhaled Oxygen Concentration - - Weight 58 kg (127 lb 12.8 oz) 11/06/2020 8:41 AM FUNCTIONAL ANALYST Height 167.6 cm (5' 6) 11/06/2020 8:41 AM FUNCTIONAL ANALYST Body Mass Index 20.63 11/06/2020 8:41 AM FUNCTIONAL ANALYST Plan of Treatment Not on file Insurance [facility] Care Teams Time Analysis Clerk Relationship Specialty Start Date End Date Yoanna Narvaez PA PCP - General Multigraph Operator 10/23/20
[2025-03-31 07:48] VITALS: BP 150/59; PULSE 63; RESP 16; TEMP 36.9; O2SAT 95
[2025-03-31] MEDS: LACTATED RINGERS 1,000 ML 150 ML IV CONT (07:57)
--- NOTE | 2025-03-31 08:30 | P.PNAN_ITS ---
Anes - Initial Pre Proc Eval Procedure: Operation Date: 03/31/25 09:00 Proposed Procedures p Screening Colonoscopy - Bala Jesus MD Date/Time: 03/31/25 08:30 Surgeon: Bala Jesus MD Pre Op Diagnosis: Screening Patient Data Age: 70 Gender: F Height: 1.68 m Weight: 55.5 kg Last Vital Signs Temp 98.4 F 03/31/25 07:48 Pulse 63 03/31/25 07:48 Resp 16 03/31/25 07:48 BP 150/59 H 03/31/25 07:48 Pulse Ox 95 03/31/25 07:48 O2 Del Method Room Air 03/31/25 07:48 Allergies Allergy/AdvReac Type Severity Reaction Status Date / Time guaifenesin Allergy Unknown Unknown Verified 03/31/25 07:47 Sulfa (Sulfonamide Allergy Unknown Skin Verified 03/31/25 07:47 Antibiotics) irritation SMELLS OF FOOD, PERFUMES Allergy Unknown Cough Uncoded 03/31/25 07:47 CAUSE SEVERE COUGHING Home Medications ?Medication ?Instructions ?Recorded ?Confirmed ?Type pantoprazole 20 mg tablet,delayed 20 mg PO BID #180 tabs 12/06/19 03/31/25 Rx release simvastatin 20 mg tablet 20 mg PO DAILY #90 tabs 05/29/20 03/31/25 Rx meloxicam 15 mg tablet 15 mg PO DAILY PRN pain 03/21/25 03/31/25 History Patient hx anesthesia problems: none Family hx anesthesia problems: none Results Review: All pre-operative results and documents have been reviewed as part of the pre- operative evaluation. [facility] Past Medical History Medical History Arthritis Asthma Coughing Kidney stones Stomach ulcer Wears glasses Surgical History Surgical History History of hand surgery History of hernia repair History of hysterectomy History of nasal surgery Family History Family History Sibling Diabetes mellitus Hypertension Family history of liver disease Mother Hypertension Family history of cardiovascular disease Father Family history of elevated blood lipids Family history of congestive heart failure Hypertension Family history of chronic obstructive pulmonary disease Other Family history of allergic disorder Heart disease Lung disease Social History Social History Smoking packs per day: 2 Smoking cigarettes per day: 40.0 Years smoked: 8 Smoking pack-years: 16.00 Smoking status: Former smoker Second hand tobacco smoke exposure: No Smoking end date: 10/20/02 Alcohol intake: current Drinks per week: 2 Substance use: current Substance use type: marijuana Anes - Eval Final PreProcedure Day of Procedure 03/31/25 08:30 Patient weight: normal Heart: regular rate and rhythm Lungs: clear to auscultation Airway: Mallampati scale class II Neurological: alert and oriented Last oral intake: >/= 8 hours ASA classification: III Emergent: no Anesthetic plan: proceed Anesthesia type and monitoring: general GIVS and standard monitoring Results Review: All pre-operative results and documents have been reviewed as part of the pre- operative evaluation. Informed Consent: The patient's anesthetic plan and its attendant risks and benefits were discussed with the patient/family/POA. Questions were solicited and answers provided to the satisfaction of the patient/family/POA.
--- NOTE | 2025-03-31 08:59 | PM.IMHP ---
H&P: HPI History of Present Illness Date/Time: 03/31/25 08:59 Chief Complaint: History of colon polyps Narrative: The patient has a history of colonic polyps, the last colonoscopy was 7 years ago. Review of Systems Review of Systems: All systems reviewed & are unremarkable except as noted in HPI and below PMFSH Past Medical History Medical History Arthritis Asthma Coughing Kidney stones Stomach ulcer Wears glasses Surgical History Surgical History History of hand surgery History of hernia repair History of hysterectomy History of nasal surgery Family History Family History Sibling Diabetes mellitus Hypertension Family history of liver disease Mother Hypertension Family history of cardiovascular disease Father Family history of elevated blood lipids Family history of congestive heart failure Hypertension Family history of chronic obstructive pulmonary disease Other Family history of allergic disorder Heart disease Lung disease Social History Social History Smoking packs per day: 2 Smoking cigarettes per day: 40.0 Years smoked: 8 Smoking pack-years: 16.00 Smoking status: Former smoker Second hand tobacco smoke exposure: No Smoking end date: 10/20/02 Alcohol intake: current Drinks per week: 2 Substance use: current Substance use type: marijuana Meds Home Medications and Allergies Home Medications ?Medication ?Instructions ?Recorded ?Confirmed ?Type pantoprazole 20 mg tablet,delayed 20 mg PO BID #180 tabs 12/06/19 03/31/25 Rx release simvastatin 20 mg tablet 20 mg PO DAILY #90 tabs 05/29/20 03/31/25 Rx meloxicam 15 mg tablet 15 mg PO DAILY PRN pain 03/21/25 03/31/25 History Allergies Allergy/AdvReac Type Severity Reaction Status Date / Time guaifenesin Allergy Unknown Unknown Verified 03/31/25 07:47 Sulfa (Sulfonamide Allergy Unknown Skin Verified 03/31/25 07:47 Antibiotics) irritation SMELLS OF FOOD, PERFUMES Allergy Unknown Cough Uncoded 03/31/25 07:47 CAUSE SEVERE COUGHING Vital Signs Vital Signs - 24 hr 03/31/25 07:48 Temperature 98.4 F Pulse Rate 63 Respiratory Rate 16 Blood Pressure 150/59 H Pulse Oximetry 95 Oxygen Delivery Room Air Exam Const: General: cooperative and healthy appearing Resp: Effort & Inspection: normal respiratory effort and able to speak in complete sentences Auscultation: clear to auscultation bilaterally Cardio: Rate: regular rate Rhythm: regular rhythm GI: Inspection: normal to inspection GI Palp: No No hepatosplenomegaly present Auscultation: normal bowel sounds Rectal Exam: deferred Skin: General skin exam: normal color Psych: Appearance: grossly normal Mental Status: mental status grossly normal Assessment and Plan Assessment and plan (1) History of colonic polyps: Code(s): Z86.0100 - Personal history of colon polyps, unspecified Status: Acute Assessment and Plan: The patient is deemed a good candidate for the procedure. Consent signed. Will proceed.
--- NOTE | 2025-03-31 09:21 | S_PTH ---
PATIENT: Marissa Rojo LOC: [facility] U#:[id number] AGE/SX: 70/F ROOM: RE03/31/[address]: Bala Jesus MD : 1955 BED: DIS: 03/31/2025 SPEC #: [id number] RECD: 03/31/25 11:51 STATUS: TADEO REQ #: [id number] RADHA: 03/31/25 09:[address]: Bala Jesus DEPT: [facility] Surgical RECD BY: Tara Lopez ENTERED: 03/31/25 11:51 SP TYPE: Surgical OTHR DR: Paul LlanosMD Tissues: A - Colon Polypectomy Procedures: Hematoxylin and Eosin Stain Gross and Microscopic Level 4
[2025-03-31 09:22] VITALS: BP 137/76; PULSE 68; RESP 17; O2SAT 100
[2025-03-31 09:32] VITALS: BP 155/86; PULSE 73; RESP 20; O2SAT 100
[2025-03-31 09:42] VITALS: BP 164/67; PULSE 66; RESP 20; O2SAT 100
== END 2025-03-31 09:52 | disposition home or self-care (01) ==
PROVIDERS: PCP Family Medicine; Referring Provider Nurse Practitioner; Visit Provider Internal Medicine Gastroenterology
PROC: 0DJD8ZZ Inspection of Lower Intestinal Tract, Via Natural or Artificial Opening Endoscopic (ICD-10-PCS; CPT 45378; principal; 2025-03-31 09:00)
DX: Z12.11 Encounter for screening for malignant neoplasm of colon (principal); D12.3 Benign neoplasm of transverse colon; K57.30 Diverticulosis of large intestine without perforation or abscess without bleeding; J45.909 Unspecified asthma, uncomplicated; M19.90 Unspecified osteoarthritis, unspecified site; F12.90 Cannabis use, unspecified, uncomplicated; Z98.890 Other specified postprocedural states; Z87.891 Personal history of nicotine dependence; Z87.442 Personal history of urinary calculi; Z87.11 Personal history of peptic ulcer disease; Z82.49 Family history of ischemic heart disease and other diseases of the circulatory system
CPT/HCPCS: 45385; 88305; J2003; J2704; J7120